=== PATIENT | male | born 1990 | race Caucasian/White ===

== ENCOUNTER 2018-05-02 12:10 | Emergency (ER) | payer OTHER ==
[~2018-05-02] VITALS: Ht 195.6 cm; Wt 81.8 kg
[2018-05-02] MEDS ORDERED: DIPH25CA PO (15:28)
[2018-05-02 15:46] VITALS: BP 122/58
--- NOTE | 2018-05-07 16:40 | CR ---
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 The patient received a smallpox vaccination about 7-10 days prior to this rash developing. He has the smallpox vaccine on his left shoulder and that has been covered. He denied touching the scab or the vaccination site. He denied having any fever or chills. He had no nausea, vomiting, or diarrhea. No oral lesions. No eye lesions. This was his first smallpox vaccination. He was feeling well other than the rash. He has been afebrile. PHYSICAL EXAMINATION: Temperature is 97.8, pulse 51, respirations 16, blood pressure 122/58, oxygen saturation 98% on room air. HEART: Normal S1, S2 with no murmurs, rubs, or gallops. LUNGS: Clear. No wheezes, rales, or rhonchi. ABDOMEN: Soft, nontender. No hepatosplenomegaly. EXTREMITIES: No clubbing, cyanosis, or edema. Oropharynx is clear with no lesions. Pupils equal and reactive, anicteric. Conjunctivae are clear. SKIN: He has a few papular vesicular lesions on his back, total of 8-10, a few on his abdomen, one on his medial thigh on the left side, one on his arm that are a little more erythematous. A total of less than 15 lesions. The patient looks very well, nontoxic. His vaccine site that on his left deltoid. He has a the area of redness, warmth, itching. He had a large left supraclavicular lymph node measuring about 2 x 1 cm, mobile, slightly tender to touch. There are some satellite lesions around vaccination site, and the vaccination site measured about 3 x 2 cm. There is no significant erythema around the vaccination site. IMPRESSION: This is a 28-year-old gentleman who had smallpox vaccination about 7-10 days ago who presents with a cutaneous adverse reaction that looks to me like a nonviral pustulosis, which is just generalized follicular rash. The patient does not look ill. It occurs in 5 in 10,000 primary vaccines and usually 7-14 days post vaccination. Polymerase chain reaction (PCR) usually is negative, and the patient is usually not contagious. PLAN: The patient could be discharged home. I would avoid contact at this time until we make sure these lesions are not infectious. Recommended he would not go back to work for 48 hours. The patient needs to be seen by Dr. Weston Bill and cleared first who is a lead business analyst for the , who has been called regarding the case. The case has also been discussed with Dr. Romain Noonan from [facility], who is the medical records auditor for vaccine safety in the [facility] region. He also asked us to get some viral specimens for PCR testing that may need to be sent on Saturday to [facility] or [facility]. [facility]
== END 2018-05-02 17:07 | disposition home or self-care (01) ==
LOC: M ED 12:10 → EDBD 12:10 → M ED 17:07
DX: R21 Rash and other nonspecific skin eruption (principal); T50.B95A Adverse effect of other viral vaccines, initial encounter

== ENCOUNTER 2021-05-25 10:18 | Emergency (ER) | payer OTHER ==
[~2021-05-25] VITALS: Ht 193 cm; Wt 98.7 kg
[~2021-05-25 10:18] MED LIST: DIPH25CA32 PO
[2021-05-25 12:51] VITALS: BP 136/84
== END 2021-05-25 12:51 | disposition home or self-care (01) ==
LOC: M ED 10:18
DX: R07.9 Chest pain, unspecified (principal); I45.19 Other right bundle-branch block